=== PATIENT | female | born 1985 | race African-American/Black ===

== ENCOUNTER 2016-10-12 09:38 | Emergency (ER) | payer OTHER ==
[~2016-10-12] VITALS: Ht 170.2 cm; Wt 74.8 kg
[2016-10-12 09:55] VITALS: BP 120/76
[2016-10-12] MEDS ORDERED: IBUPROFEN 600 MG TABLET. PO ONE ×2 (10:00→10:06)
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
== END 2016-10-12 10:39 | disposition home or self-care (01) ==
LOC: ER 09:38
DX: S70.11XA Contusion of right thigh, initial encounter (principal); W50.1XXA Accidental kick by another person, initial encounter; Y93.89 Activity, other specified; Y99.8 Other external cause status; Y92.89 Other specified places as the place of occurrence of the external cause
CPT/HCPCS: 99282

== ENCOUNTER 2020-12-02 15:13 | Emergency (ER) | payer OTHER ==
[~2020-12-02] VITALS: Ht 170.2 cm; Wt 70.0 kg
--- NOTE | 2020-12-02 15:52 | RAD ---
Site ID: [id number] EXAMINATION: XR CHEST 2V. HISTORY: 35 years Female chest pain COMPARISON: None. Findings: The lungs are clear. The heart size is normal. There is no effusion or pneumothorax. The mediastinum and anthony appear unremarkable. Impression: Unremarkable study. Electronically signed by: Martín Stone MD (12/02/2020 3:50 PM) [id number]
--- NOTE | 2020-12-02 16:22 | EKG ---
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
[2020-12-02 17:37] VITALS: BP 128/58
== END 2020-12-02 18:00 | disposition home or self-care (01) ==
LOC: ER 15:13
DX: R07.89 Other chest pain (principal); F41.9 Anxiety disorder, unspecified
CPT/HCPCS: 71046; 93005; 99285